=== PATIENT | male | born 1965 ===

== ENCOUNTER 2017-03-28 07:42 | Emergency (ER) | payer MEDICAID, OTHER ==
[2017-03-28] MEDS ORDERED: Sodium Chloride 0.9% 1,000 ML ONE (08:02)
[2017-03-28] MEDS ORDERED: Sodium Chloride 0.9% 1,000 ML IV ONE (08:07)
--- NOTE | 2017-03-28 08:16 | C.PDOC ---
History Of Present Illness 51 yr old male presents to the ER with complaints of left flank pain, radiating down to the left lower abdominal pain since 6am today. Patient states he has never had these symptoms before. Denies fever, chills, chest pain, SOB, nausea, vomiting, diarrhea, dysuria, weakness or numbness. Time Seen by Provider: 03/28/17 07:50 Chief Complaint (Nursing): Back Pain History Per: Patient History/Exam Limitations: no limitations Onset/Duration Of Symptoms: Sudden Onset (since 6am) Current Symptoms Are (Timing): Still Present Past Medical History Reviewed: Historical Data, Nursing Documentation, Vital Signs Vital Signs: Last Vital Signs Temp 97.6 F 03/28/17 09:22 Pulse 62 03/28/17 09:22 Resp 18 03/28/17 09:22 BP 133/87 03/28/17 09:22 Pulse Ox 100 03/28/17 09:24 - Medical History PMH: HTN Surgical History: Back Surgery Family History: States: No Known Family Hx - Social History Hx Alcohol Use: No Hx Substance Use: No - Immunization History Hx Tetanus Toxoid Vaccination: No Hx Influenza Vaccination: No Hx Pneumococcal Vaccination: No Review Of Systems Except As Marked, All Systems Reviewed And Found Negative. Constitutional: Negative for: Fever, Chills Cardiovascular: Negative for: Chest Pain Respiratory: Negative for: Shortness of Breath Gastrointestinal: Positive for: Abdominal Pain (Left lower). Negative for: Nausea, Vomiting Genitourinary: Negative for: Dysuria Musculoskeletal: Positive for: Back Pain (Left flank pain) Neurological: Negative for: Weakness, Numbness Physical Exam - Physical Exam Appears: Non-toxic, No Acute Distress Skin: Warm, Dry, No Rash Head: Atraumatic, Normacephalic Eye(s): bilateral: Normal Inspection Oral Mucosa: Moist Neck: Normal ROM, Supple Chest: Symmetrical, No Tenderness Cardiovascular: Rhythm Regular, No Murmur Respiratory: Normal Breath Sounds, No Rales, No Rhonchi, No Wheezing Gastrointestinal/Abdominal: Soft, Tenderness (LLQ tenderness), No Distention, No Guarding, No Rebound Back: CVA Tenderness (Left), No Vertebral Tenderness Extremity: Normal ROM, No Swelling Neurological/Psych: Oriented x3, Normal Speech, Normal Motor Gait: Steady ED Course And Treatment - Laboratory Results Result Diagrams: 03/28/17 08:15 03/28/17 08:15 O2 Sat by Pulse Oximetry: 100 (RA) Pulse Ox Interpretation: Normal - CT Scan/US CT - Abd & Pelvis Other Rad Studies (CT/US): Read By Radiologist, Radiology Report Reviewed CT/US Interpretation: PROCEDURE: CT Abdomen and Pelvis without intravenous contrast. HISTORY: left flank and LLQ abd pain,. COMPARISON: None. TECHNIQUE: Without contrast.. Contrast Dose: 0. Radiation dose: Total exam DLP = 290.36 mGy-cm. This CT exam was performed using one or more of the following dose reduction techniques: Automated exposure control, adjustment of the mA and/or kV according to patient size, and/or use of iterative reconstruction technique. FINDINGS: LOWER THORAX: Unremarkable. LIVER: Unremarkable. No gross lesion or ductal dilatation. GALLBLADDER AND BILE DUCTS : Unremarkable. PANCREAS: Unremarkable. No gross lesion or ductal dilatation. SPLEEN: Unremarkable. ADRENALS: Unremarkable. No mass. KIDNEYS AND URETERS: No renal mass, calculus or hydronephrosis. There is minimal left perinephric fluid likely reflecting forniceal rupture. Possibility of a recently passed urinary calculus should be considered. There is no ureteral calculus or hydroureter. VASCULATURE: Unremarkable. No aortic aneurysm. BOWEL : Unremarkable. No obstruction. No gross mural thickening. APPENDIX: Unremarkable. Normal appendix. PERITONEUM: Unremarkable. No free fluid. No free air. LYMPH NODES: Unremarkable. No enlarged lymph nodes. BLADDER: Unremarkable. REPRODUCTIVE: Normal prostate. BONES: Status post anterior fixation at L5-S1 with artificial disc spacer. OTHER FINDINGS: None. IMPRESSION: Trace left perinephric fluid which may be the result of recently passed urinary calculus. No hydronephrosis or hydroureter. No urinary calculus identified. The remainder of the examination is unremarkable. Medical Decision Making Medical Decision Making: PLAN: * CT - Abd & Pelvis * CBC * CMP * Urinalysis * Toradol IVP * Zofran IVP * Sodium Chloride IV CT results demonstrate the a stone was likely there and has come out. Results were discussed with the patient. On re-exam, the patient reports improvement of symptoms and is pain free. Lungs are CTA, heart is RRR, abdomen is soft, non- tender and patient is tolerating PO well. Ambulatory in the ED with steady gait. Follow up with the medical doctor within 1-2 days, Return if worsened. Disposition - Disposition Referrals: Brionna,[place] J, MD [Staff Provider] - Disposition: HOME/ ROUTINE Disposition Time: 09:00 Condition: GOOD Additional Instructions: Follow up with the medical doctor/Urologist within 1-2 days. Return if worsened. 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 - Scribe Statement The provider has reviewed the documentation as recorded by the Scribe Erin Torres All medical record entries made by the Silvana were at my direction and personally dictated by me. I have reviewed the chart and agree that the record accurately reflects my personal performance of the history, physical exam, medical decision making, and the department course for this patient. I have also personally directed, reviewed, and agree with the discharge instructions and disposition.
[2017-03-28 08:20] LABS: BASO # 0.1 K/uL (0.0-0.2); BASO % 1.5 % (0.0-2.0); EOS # 0.1 K/uL (0.0-0.7); EOS % 1.1 % (0.0-4.0); HEMATOCRIT 49.3 % (35.0-51.0); LYMPH # 3.1 K/uL (1.0-4.3); MEAN CELL VOLUME 94.3 fL (80.0-94.0); MEAN CORPUSCULAR HEMOGLOBIN 31.7 pg (27.0-31.0); MEAN CORPUSCULAR HGB CONC 33.6 g/dL (33.0-37.0); MEAN PLATELET VOLUME 10.6 fL (7.2-11.7); MONO # 0.8 K/uL (0.0-0.8); MONO % 9.9 % (0.0-10.0); NRBC % 0.1 % (0.0-2.0); RED CELL DISTRIBUTION WIDTH 13.6 % (11.5-14.5); WHITE BLOOD COUNT 8.3 K/uL (4.8-10.8)
[2017-03-28 08:28] LABS: CHLORIDE 104 mmol/L (98-107); SODIUM 141 mmol/L (132-148)
[2017-03-28 08:29] LABS: POTASSIUM 4.3 mmol/L (3.6-5.2)
[2017-03-28 08:30] LABS: GFR AFRICAN-AMERICAN > 60
[2017-03-28 08:31] LABS: ALB/GLOB RATIO 1.5 (1.0-2.1); ALKALINE PHOSPHATASE 102 U/L (38-126); ALT/SGPT 37 U/L (21-72); AST/SGOT 24 U/L (17-59); BILIRUBIN,TOTAL 0.8 mg/dL (0.2-1.3); BLOOD UREA NITROGEN 24 mg/dL (9-20); CALCIUM 9.1 mg/dl (8.6-10.4); CARBON DIOXIDE 25 mmol/L (22-30); GLUCOSE,RANDOM 104 mg/dL (75-110); RBC URINE 5 /hpf (0-3); TOTAL PROTEIN 7.2 g/dL (6.3-8.3); URINE BACTERIA RARE (<OCC); URINE BILIRUBIN NEGATIVE (NEGATIVE); URINE BLOOD 1+ (NEGATIVE); URINE COLOR Yellow (YELLOW); URINE GLUCOSE (UA) NORMAL (Normal); URINE KETONE NEGATIVE (NEGATIVE); URINE LEUKOCYTE ESTERASE NEG Leu/uL (Negative); URINE PROTEIN NEGATIVE (NEGATIVE); URINE UROBILINOGEN NORMAL mg/dL (0.2-1.0); WBC URINE 2 /hpf (0-5)
--- NOTE | 2017-03-28 09:01 | CT ---
PROCEDURE: CT Abdomen and Pelvis without intravenous contrast HISTORY: left flank and LLQ abd pain, COMPARISON: None. TECHNIQUE: Without contrast.. Contrast Dose: 0 Radiation dose: Total exam DLP = 290.36 mGy-cm. This CT exam was performed using one or more of the following dose reduction techniques: Automated exposure control, adjustment of the mA and/or kV according to patient size, and/or use of iterative reconstruction technique. FINDINGS: LOWER THORAX: Unremarkable. LIVER: Unremarkable. No gross lesion or ductal dilatation. GALLBLADDER AND BILE DUCTS: Unremarkable. PANCREAS: Unremarkable. No gross lesion or ductal dilatation. SPLEEN: Unremarkable. ADRENALS: Unremarkable. No mass. KIDNEYS AND URETERS: No renal mass, calculus or hydronephrosis. There is minimal left perinephric fluid likely reflecting forniceal rupture. Possibility of a recently passed urinary calculus should be considered. There is no ureteral calculus or hydroureter. VASCULATURE: Unremarkable. No aortic aneurysm. BOWEL: Unremarkable. No obstruction. No gross mural thickening. APPENDIX: Unremarkable. Normal appendix. PERITONEUM: Unremarkable. No free fluid. No free air. LYMPH NODES: Unremarkable. No enlarged lymph nodes. BLADDER: Unremarkable. REPRODUCTIVE: Normal prostate BONES: Status post anterior fixation at L5-S1 with artificial disc spacer. OTHER FINDINGS: None. IMPRESSION: Trace left perinephric fluid which may be the result of recently passed urinary calculus. No hydronephrosis or hydroureter. No urinary calculus identified. The remainder of the examination is unremarkable.
[2017-03-28 09:23] VITALS: BP 133/87; PULSE 62; RESP 18; TEMP 97.6
[2017-03-28 09:24] VITALS: O2SAT 100
== END 2017-03-28 09:35 | disposition home or self-care (01) ==
LOC: MERGE 07:42 → C.ER 07:42
DX: N23 Unspecified renal colic (principal)
CPT/HCPCS: 74176; 80053; 81001; 83690; 85025; 87086; 96361; 96374; 96375; 99285; J1885; J2405; J7040

== ENCOUNTER 2017-06-25 13:06 | Emergency (ER) | payer MEDICAID, OTHER ==
[2017-06-25 13:44] VITALS: RESP 18; TEMP 97.8
[2017-06-25 14:42] LABS: BASO # 0.1 K/uL (0.0-0.2); BASO % 1.1 % (0.0-2.0); EOS # 0.1 K/uL (0.0-0.7); EOS % 1.8 % (0.0-4.0); HEMATOCRIT 48.7 % (35.0-51.0); LYMPH # 2.8 K/uL (1.0-4.3); LYMPH % 39.4 % (20.0-40.0); MEAN CELL VOLUME 93.9 fL (80.0-94.0); MEAN CORPUSCULAR HEMOGLOBIN 31.9 pg (27.0-31.0); MEAN PLATELET VOLUME 9.7 fL (7.2-11.7); MONO # 0.7 K/uL (0.0-0.8); MONO % 9.6 % (0.0-10.0); RED CELL DISTRIBUTION WIDTH 13.5 % (11.5-14.5); WHITE BLOOD COUNT 7.1 K/uL (4.8-10.8)
[2017-06-25 14:54] LABS: RBC URINE < 1 /hpf (0-3); URINE BILIRUBIN NEGATIVE (NEGATIVE); URINE BLOOD NEGATIVE (NEGATIVE); URINE COLOR Yellow (YELLOW); URINE GLUCOSE (UA) NORMAL (Normal); URINE KETONE NEGATIVE (NEGATIVE); URINE LEUKOCYTE ESTERASE NEG Leu/uL (Negative); URINE PROTEIN NEGATIVE (NEGATIVE); URINE UROBILINOGEN NORMAL mg/dL (0.2-1.0); WBC URINE 1 /hpf (0-5)
--- NOTE | 2017-06-25 15:01 | C.PDOC ---
History Of Present Illness 51yo male with past medical history of hypertension, presents to ED for evaluation of frontal headache and bilateral shoulder pain for the past 3 weeks. Patient denies any heavy lifting, recent trauma or injuries. He also states the headache is not the worst of his life and denies any thunderclap association. He also denies any nausea, vomiting, visual changes. Patient has not taken any medication for his symptoms. No other complaints. Time Seen by Provider: 06/25/17 14:20 Chief Complaint (Nursing): Headache History Per: Patient History/Exam Limitations: no limitations Onset/Duration Of Symptoms: Days (3) Current Symptoms Are (Timing): Still Present Quality: "Pain" Preceeding Symptoms: None Associated Symptoms: denies: Photophobia, Blurred Vision, Nausea, Vomiting, Extremity Weakness Past Medical History Vital Signs: Last Vital Signs Temp 97.8 F 06/25/17 13:42 Pulse 77 06/25/17 13:42 Resp 18 06/25/17 13:42 BP 138/80 06/25/17 13:42 Pulse Ox 98 06/25/17 15:53 - Medical History PMH: HTN Surgical History: Back Surgery Family History: States: No Known Family Hx - Social History Hx Alcohol Use: No Hx Substance Use: No - Immunization History Hx Tetanus Toxoid Vaccination: No Hx Influenza Vaccination: No Hx Pneumococcal Vaccination: No Review Of Systems Constitutional: Negative for: Fever Eyes: Negative for: Vision Change Musculoskeletal: Positive for: Shoulder Pain (bilateral) Neurological: Positive for: Headache. Negative for: Other (thunderclap association) Physical Exam - Physical Exam Appears: Non-toxic Skin: Normal Color, Warm Head: Atraumatic, Normacephalic Eye(s): bilateral: Normal Inspection, PERRL, EOMI Neck: Supple Cardiovascular: Rhythm Regular Respiratory: Normal Breath Sounds Extremity: Normal ROM, Tenderness (tenderness to bilateral trapezius and ), No Deformity, No Swelling Neurological/Psych: Oriented x3, Normal Speech, Normal Cognition ED Course And Treatment - Laboratory Results Result Diagrams: 06/25/17 14:39 06/25/17 14:39 ECG: Interpreted By Me, Viewed By Me ECG Rhythm: Sinus Rhythm Interpretation Of ECG: Normal interval, normal axis, no ST/T wave changes Rate From EC O2 Sat by Pulse Oximetry: 98 (RA) Pulse Ox Interpretation: Normal Medical Decision Making Medical Decision Making: Impression: Headache, musculoskeletal pain Plan: -- CT Head w/o contrast -- EKG -- Labs Time: 1515 CT HEAD FINDINGS: HEMORRHAGE: No intracranial hemorrhage. BRAIN: No mass effect or edema. The anrdade-white matter differentiation appears intact. Please note that MRI with diffusion imaging is more sensitive in the detection of acute ischemic event. VENTRICLES: No hydrocephalus. CALVARIUM: Unremarkable. PARANASAL SINUSES: Unremarkable as visualized. No significant inflammatory changes. MASTOID AIR CELLS: Unremarkable as visualized. No inflammatory changes. OTHER FINDINGS: None. IMPRESSION: No acute intracranial pathology identified. Time: 1551 Labs including cardiac enzymes reviewed and all within normal limits. Patient stable for discharge home. Disposition Counseled Patient/Family Regarding: Studies Performed, Diagnosis, Need For Followup, Rx Given - Disposition Referrals: [facility] [Outside] Disposition: HOME/ ROUTINE Disposition Time: 15:54 Condition: IMPROVED Additional Instructions: follow up with your doctor or medical clinic in 2 days call to make an appointment take medications as needed for pain return to hospital if symptoms worsens or progress Prescriptions: Naproxen [Naprosyn] 500 mg PO BID PRN #16 tab PRN Reason: Pain, Moderate (4-7) Instructions: Acute Headache (ED), Musculoskeletal Pain (ED) Forms: [facility] [facility] (Yoruba), Gen Discharge Inst Peruvian, [employer] (Peruvian) Print Language: ALGERIAN - Clinical Impression Clinical Impression: Headache, Neck pain, musculoskeletal - Scribe Statement The provider has reviewed the documentation as recorded by the Silvana Wyatt Provider Attestation: All medical record entries made by the Silvana were at my direction and personally dictated by me. I have reviewed the chart and agree that the record accurately reflects my personal performance of the history, physical exam, medical decision making, and the department course for this patient. I have also personally directed, reviewed, and agree with the discharge instructions and disposition.
--- NOTE | 2017-06-25 15:11 | CT ---
PROCEDURE: CT HEAD WITHOUT CONTRAST. HISTORY: Headache COMPARISON: None available. TECHNIQUE: Axial computed tomography images were obtained through the head/brain without intravenous contrast. Radiation dose: Total exam DLP = 854.85 mGy-cm. This CT exam was performed using one or more of the following dose reduction techniques: Automated exposure control, adjustment of the mA and/or kV according to patient size, and/or use of iterative reconstruction technique. FINDINGS: HEMORRHAGE: No intracranial hemorrhage. BRAIN: No mass effect or edema. The andrade-white matter differentiation appears intact. Please note that MRI with diffusion imaging is more sensitive in the detection of acute ischemic event. VENTRICLES: No hydrocephalus. CALVARIUM: Unremarkable. PARANASAL SINUSES: Unremarkable as visualized. No significant inflammatory changes. MASTOID AIR CELLS: Unremarkable as visualized. No inflammatory changes. OTHER FINDINGS: None. IMPRESSION: No acute intracranial pathology identified.
[2017-06-25 15:13] LABS: ALB/GLOB RATIO 1.5 (1.0-2.1); BILIRUBIN,TOTAL 0.7 mg/dL (0.2-1.3); CALCIUM 8.4 mg/dl (8.6-10.4); GFR AFRICAN-AMERICAN > 60; GLUCOSE,RANDOM 102 mg/dL (75-110); TOTAL PROTEIN 6.6 g/dL (6.3-8.3)
[2017-06-25 15:20] LABS: ALKALINE PHOSPHATASE 93 U/L (38-126); ALT/SGPT 67 U/L (21-72); AST/SGOT 53 U/L (17-59); BLOOD UREA NITROGEN 17 mg/dL (9-20); CARBON DIOXIDE 29 mmol/L (22-30); CHLORIDE 105 mmol/L (98-107); POTASSIUM 4.1 mmol/L (3.6-5.2); SODIUM 140 mmol/L (132-148)
[2017-06-25 16:04] VITALS: BP 143/80; PULSE 60; O2SAT 99
--- NOTE | 2017-06-27 23:03 | CARD ---
APPROVED REPORT EKG Measurement Heart [id number] <Conclusion> Normal sinus rhythm Normal ECG
== END 2017-06-25 16:04 | disposition home or self-care (01) ==
LOC: C.ER 13:06
DX: R51 Headache (principal); M54.2 Cervicalgia
CPT/HCPCS: 70450; 80053; 81001; 82550; 85025; 93005; 96374; 99285; J1885

== ENCOUNTER 2017-07-05 21:05 | Emergency (ER) | payer OTHER ==
--- NOTE | 2017-07-05 22:00 | C.PDOC ---
History Of Present Illness Pt presents with sudden onset of left flank pain, radiating towards the groin. No f/c/n/v. Sharp stabbing pain. No dysuria Time Seen by Provider: 07/05/17 22:00 Chief Complaint (Nursing): Abdominal Pain History Per: Patient History/Exam Limitations: no limitations Onset/Duration Of Symptoms: Hrs Current Symptoms Are (Timing): Worse Severity: Moderate Pain Scale Rating Of: 5 Location Of Pain/Discomfort: LLQ Radiation Of Pain To:: Back Quality Of Discomfort: Sharp, Stabbing Associated Symptoms: denies: Fever, Chills, Nausea, Urinary Symptoms Exacerbating Factors: None Alleviating Factors: None Last Bowel Movement: Today Recent travel outside of the [place]: No Additional History Per: Patient Past Medical History Reviewed: Historical Data, Nursing Documentation, Vital Signs Vital Signs: Last Vital Signs Temp 97.5 F L 07/05/17 21:52 Pulse 64 07/05/17 22:22 Resp 20 07/05/17 22:22 BP 135/80 07/05/17 22:22 Pulse Ox 97 07/05/17 23:18 - Medical History PMH: Back Problems, HTN Surgical History: Back Surgery Family History: States: No Known Family Hx - Social History Hx Alcohol Use: No Hx Substance Use: No - Immunization History Hx Tetanus Toxoid Vaccination: No Hx Influenza Vaccination: No Hx Pneumococcal Vaccination: No Review Of Systems Constitutional: Negative for: Fever, Chills Eyes: Negative for: Vision Change ENT: Negative for: Throat Pain Cardiovascular: Negative for: Chest Pain Respiratory: Negative for: Shortness of Breath Gastrointestinal: Positive for: Abdominal Pain. Negative for: Nausea, Vomiting Genitourinary: Negative for: Dysuria Musculoskeletal: Positive for: Back Pain Skin: Negative for: Rash Neurological: Negative for: Weakness Psych: Negative for: Anxiety Physical Exam - Physical Exam Appears: Non-toxic, In Acute Distress Skin: Warm, Dry Head: Normacephalic Eye(s): bilateral: Normal Inspection Neck: Supple Chest: Symmetrical Cardiovascular: Rhythm Regular Respiratory: No Rales, No Rhonchi, No Wheezing Gastrointestinal/Abdominal: Soft, Tenderness (left flank), No Distention, No Guarding, No Rebound Back: CVA Tenderness (left flank) Extremity: Normal ROM Extremity: Bilateral: Atraumatic, Normal Color And Temperature Pulses: Left Dorsalis Pedis: Normal, Right Dorsalis Pedis: Normal Neurological/Psych: Oriented x3 Gait: Steady ED Course And Treatment - Laboratory Results Result Diagrams: 07/05/17 22:20 07/05/17 22:20 O2 Sat by Pulse Oximetry: 97 Pulse Ox Interpretation: Normal - Radiology CXR: Interpreted by Me, Viewed By Me CXR Interpretation: No: Infiltrates, Fracture, Pnemothorax Reevaluation Time: 01:57 Reassessment Condition: Improved Disposition Counseled Patient/Family Regarding: Studies Performed, Diagnosis, Need For Followup, Rx Given - Disposition Referrals: Serafin Serna MD [Staff Provider] - Disposition: HOME/ ROUTINE Disposition Time: 22:00 Condition: FAIR Additional Instructions: Please return if symptoms recur Prescriptions: Tamsulosin [Flomax] 0.4 mg PO DAILY #15 cap traMADol [Ultram] 50 mg PO QID PRN #20 tab PRN Reason: Pain, Severe (8-10) Instructions: Renal Colic (ED) Forms: [employer] (Prydeinig) Print Language: KAZAKH - Clinical Impression Clinical Impression: Renal colic, Abdominal discomfort
[2017-07-05] MEDS ORDERED: Lactated Ringer's 1,000 ML IV ONE (22:02)
[2017-07-05] MEDS ORDERED: Lactated Ringer's 1,000 ML ONE (22:08)
[2017-07-05 22:23] LABS: BASO # 0.1 K/uL (0.0-0.2); BASO % 0.8 % (0.0-2.0); EOS # 0.2 K/uL (0.0-0.7); EOS % 1.2 % (0.0-4.0); HEMATOCRIT 46.8 % (35.0-51.0); LYMPH # 2.6 K/uL (1.0-4.3); LYMPH % 18.8 % (20.0-40.0); MEAN CELL VOLUME 93.6 fL (80.0-94.0); MEAN CORPUSCULAR HEMOGLOBIN 32.5 pg (27.0-31.0); MEAN CORPUSCULAR HGB CONC 34.7 g/dL (33.0-37.0); MEAN PLATELET VOLUME 9.8 fL (7.2-11.7); MONO # 1.4 K/uL (0.0-0.8); RED CELL DISTRIBUTION WIDTH 13.5 % (11.5-14.5); WHITE BLOOD COUNT 13.9 K/uL (4.8-10.8)
[2017-07-05 22:25] VITALS: PULSE 64
[2017-07-05 22:37] LABS: ALB/GLOB RATIO 1.6 (1.0-2.1); ALKALINE PHOSPHATASE 85 U/L (38-126); ALT/SGPT 47 U/L (21-72); AST/SGOT 40 U/L (17-59); BILIRUBIN,TOTAL 1.4 mg/dL (0.2-1.3); BLOOD UREA NITROGEN 21 mg/dL (9-20); CALCIUM 8.1 mg/dl (8.6-10.4); CARBON DIOXIDE 26 mmol/L (22-30); CHLORIDE 104 mmol/L (98-107); GFR AFRICAN-AMERICAN > 60; GLUCOSE,RANDOM 89 mg/dL (75-110); POTASSIUM 4.8 mmol/L (3.6-5.2); SODIUM 137 mmol/L (132-148); TOTAL PROTEIN 6.8 g/dL (6.3-8.3)
[2017-07-05 22:56] LABS: RBC URINE 4 /hpf (0-3); URINE BILIRUBIN NEGATIVE (NEGATIVE); URINE BLOOD NEGATIVE (NEGATIVE); URINE COLOR Yellow (YELLOW); URINE GLUCOSE (UA) NORMAL (Normal); URINE KETONE NEGATIVE (NEGATIVE); URINE LEUKOCYTE ESTERASE NEG Leu/uL (Negative); URINE PROTEIN NEGATIVE (NEGATIVE); URINE UROBILINOGEN NORMAL mg/dL (0.2-1.0); WBC URINE < 1 /hpf (0-5)
--- NOTE | 2017-07-06 01:41 | CT ---
EXAM: CT Abdomen and Pelvis Without Intravenous Contrast EXAM DATE/TIME: 07/05/2017 10:59 PM CLINICAL HISTORY: 51 years old, male; Pain; Abdominal pain; Prior surgery; Surgery type: Lower back surgery; Patient HX: 03-28-17; Additional info: Left flank pain TECHNIQUE: Axial computed tomography images of the abdomen and pelvis without intravenous contrast. All CT scans at this facility use one or more dose reduction techniques, viz.: automated exposure control; ma/kV adjustment per patient size (including targeted exams where dose is matched to indication; i.e. head); or iterative reconstruction technique. Coronal and sagittal reformatted images were created and reviewed. COMPARISON: CT - ABD PELVIS W/O PO OR IV CONT 2017-03-28 08:31 FINDINGS: The liver, spleen, gallbladder and pancreas appear grossly normal on this non-contrast study. There is mild left hydronephrosis and very mild left hydroureter.There is moderate left perinephric stranding/fluid increased since prior. The left ureter enters the urinary bladder on coronal image 67 , axial image 166. There is a questionable tiny 1 mm calcification at the UVJ however the tiny size would not be expected to obstruct the larger caliber ureteral lumen thus would not be expected to produce the degree of dilation or stranding / fluid present. Colon diverticulosis. A normal appendix is identified series 3 images 121 through 139. Anterior fixation with artificial disc spacer at L5-S1. IMPRESSION: Left perinephric stranding and perinephric fluid that has increased significantly since the prior study. Mild left hydronephrosis and hydroureter. The perinephric stranding/fluid is significantly out of proportion to the dilation. This disproportionality usually suggests forniceal rupture (as discussed in prior report) however the lack of obstructing calculi raises the possibility of nonopaque source of obstruction. Recently passed calculi would be a possibility however if the patient's symptoms do not resolve, further workup is warranted to exclude nonopaque source of obstruction.
[2017-07-06 02:16] VITALS: BP 150/90; RESP 18; TEMP 97.9; O2SAT 98
--- NOTE | 2017-07-06 08:57 | RAD ---
PROCEDURE: CHEST RADIOGRAPH, 1 VIEW HISTORY: Sepsis COMPARISON: None available. FINDINGS: LUNGS: The lungs are clear. PLEURA: No pneumothorax or pleural fluid seen. CARDIOVASCULAR: Normal. OSSEOUS STRUCTURES: No significant abnormalities. VISUALIZED UPPER ABDOMEN: Normal. OTHER FINDINGS: None. IMPRESSION: No active pulmonary disease.
== END 2017-07-06 02:16 | disposition home or self-care (01) ==
LOC: C.ER 21:05
DX: N23 Unspecified renal colic (principal); R10.32 Left lower quadrant pain
CPT/HCPCS: 71010; 74176; 80053; 81001; 83690; 85025; 96374; 96375; 99285; J1885; J2270; J2405; J7120

== ENCOUNTER 2018-02-18 15:51 | Emergency (ER) | payer SELFPAY ==
[2018-02-18 16:08] VITALS: PULSE 88; RESP 18; BMI 28.3
[2018-02-18 16:49] LABS: BASO # 0.1 K/uL (0.0-0.2); EOS # 0.1 K/uL (0.0-0.7); EOS % 1.6 % (0.0-4.0); HEMOGLOBIN 16.8 g/dL (12.0-18.0); LYMPH # 3.2 K/uL (1.0-4.3); LYMPH % 42.6 % (20.0-40.0); MEAN CELL VOLUME 93.6 fL (80.0-94.0); MEAN CORPUSCULAR HEMOGLOBIN 32.3 pg (27.0-31.0); MEAN CORPUSCULAR HGB CONC 34.5 g/dL (33.0-37.0); MEAN PLATELET VOLUME 9.7 fL (7.2-11.7); MONO # 0.7 K/uL (0.0-0.8); MONO % 9.9 % (0.0-10.0); NEUT # 3.3 K/uL (1.8-7.0); NEUT % 44.9 % (50.0-75.0); NRBC % 0.1 % (0.0-2.0); RBC 5.21 Mil/uL (4.40-5.90); RED CELL DISTRIBUTION WIDTH 13.6 % (11.5-14.5); WHITE BLOOD COUNT 7.4 K/uL (4.8-10.8)
--- NOTE | 2018-02-18 17:13 | CT ---
Date of service: 02/18/2018 PROCEDURE: CT Abdomen and Pelvis without intravenous contrast HISTORY: renal colic COMPARISON: 07/06/17. TECHNIQUE: Technique. Contrast dose: Radiation dose: Total exam DLP = mGy-cm. This CT exam was performed using one or more of the following dose reduction techniques: Automated exposure control, adjustment of the mA and/or kV according to patient size, and/or use of iterative reconstruction technique. FINDINGS: LOWER THORAX: Unremarkable. LIVER: Unremarkable. No gross lesion or ductal dilatation. GALLBLADDER AND BILE DUCTS: Unremarkable. PANCREAS: Unremarkable. No gross lesion or ductal dilatation. SPLEEN: Unremarkable. ADRENALS: Unremarkable. No mass. KIDNEYS AND URETERS: Redemonstrated left hydronephrosis and hydroureter without obstructive calculus. Perinephric stranding as noted on prior exam. VASCULATURE: Unremarkable. No aortic aneurysm. BOWEL: Unremarkable. No obstruction. No gross mural thickening. APPENDIX: Unremarkable. Normal appendix. PERITONEUM: Unremarkable. No free fluid. No free air. LYMPH NODES: Unremarkable. No enlarged lymph nodes. BLADDER: Unremarkable. REPRODUCTIVE: Unremarkable. BONES: No acute fracture. OTHER FINDINGS: None. IMPRESSION: Redemonstrated left hydronephrosis and hydroureter without obstructive calculus. Perinephric stranding as noted on prior exam. Cannot exclude a mass. Recommend follow-up with contrast.
[2018-02-18 17:15] LABS: BLOOD UREA NITROGEN 18 mg/dL (9-20); GFR AFRICAN-AMERICAN > 60; GFR NON-AFRICAN AMERICAN > 60
[2018-02-18 17:16] LABS: ALB/GLOB RATIO 1.5 (1.0-2.1); ALBUMIN 4.4 g/dL (3.5-5.0); ALT/SGPT 47 U/L (21-72); AST/SGOT 39 U/L (17-59); CALCIUM 9.8 mg/dl (8.6-10.4); LIPASE 114 U/L (23-300)
[2018-02-18 17:22] LABS: URINE BACTERIA RARE (<OCC); URINE BILIRUBIN NEGATIVE (NEGATIVE); URINE BLOOD 3+ (NEGATIVE); URINE CLARITY Hazy (Clear); URINE COLOR Yellow (YELLOW); URINE GLUCOSE (UA) NORMAL (Normal); URINE LEUKOCYTE ESTERASE NEG Leu/uL (Negative); URINE PROTEIN NEGATIVE (NEGATIVE); URINE UROBILINOGEN NORMAL mg/dL (0.2-1.0)
--- NOTE | 2018-02-18 17:25 | C.PDOC ---
History Of Present Illness 52 y/o male presents to the ER complaining of left flank pain that radiates to the left groin with sudden onset 2 hours ago. The patient admits to having similar symptoms before when diagnosed with renal calculi. 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 The patient denies any fever, nausea, vomiting , dysuria, or incontinence. Time Seen by Provider: 02/18/18 16:14 Chief Complaint (Nursing): Abdominal Pain History Per: Patient History/Exam Limitations: no limitations Onset/Duration Of Symptoms: Hrs Current Symptoms Are (Timing): Still Present Location Of Pain/Discomfort: Other (Flank pain radiating to groin) Radiation Of Pain To:: Other (groin) Quality Of Discomfort: Sharp Associated Symptoms: denies: Fever Past Medical History Reviewed: Historical Data, Nursing Documentation, Vital Signs Vital Signs: Last Vital Signs Temp 97 F L 02/18/18 17:40 Pulse 88 02/18/18 16:08 Resp 18 02/18/18 17:40 BP 166/82 H 02/18/18 17:40 Pulse Ox 98 02/18/18 18:14 - Medical History PMH: Back Problems, HTN, Kidney Stones, Chronic Kidney Disease Surgical History: Back Surgery Family History: States: Unknown Family Hx - Social History Hx Alcohol Use: No Hx Substance Use: No - Immunization History Hx Tetanus Toxoid Vaccination: No Hx Influenza Vaccination: No Hx Pneumococcal Vaccination: No Review Of Systems Except As Marked, All Systems Reviewed And Found Negative. Constitutional: Negative for: Fever, Chills Gastrointestinal: Negative for: Nausea, Vomiting Genitourinary: Negative for: Dysuria, Incontinence Musculoskeletal: Positive for: Back Pain (left flank) Neurological: Negative for: Weakness, Numbness Physical Exam - Physical Exam Appears: In Acute Distress (in severe painful distress) Skin: Normal Color, Warm, Dry Head: Atraumatic, Normacephalic Eye(s): bilateral: PERRL, EOMI Ear(s): Bilateral: Normal Oral Mucosa: Moist Neck: Normal ROM Chest: Symmetrical Cardiovascular: Rhythm Regular, No Murmur Respiratory: Normal Breath Sounds, No Rales, No Rhonchi, No Wheezing Gastrointestinal/Abdominal: Bowel Sounds, Soft, No Tenderness Back: CVA Tenderness (Pain with percussion to left costoverterbral angle) Extremity: Bilateral: Atraumatic, Normal Color And Temperature, Normal ROM Pulses: Left Radial: Normal, Right Radial: Normal Neurological/Psych: Oriented x3, Normal Speech Gait: Steady ED Course And Treatment - Laboratory Results Result Diagrams: 02/18/18 16:45 02/18/18 16:45 O2 Sat by Pulse Oximetry: 98 (RA) Pulse Ox Interpretation: Normal - CT Scan/US CT abdomem/pelvis Other Rad Studies (CT/US): Read By Radiologist, Radiology Report Reviewed CT/US Interpretation: Redemonstrated left hydronephrosis and hydroureter without obstructive calculus. Perinephric stranding as noted on prior exam. Cannot exclude a mass. Recommend follow-up with contrast. Medical Decision Making Medical Decision Making: Impression: 52 y/o male with flank pain that radiates to the groin Plan: --CT abd/pelvis --CMP --Lipase --CBC --UA Progress: Informed patient of CT results, copy of report provided. Final Impression: probably passed L ureteral stone h/o same no local Urology f/u prior refer to Urology Signal Maintainer- Dr. Staton. Disposition Doctor Will See Patient In The: Office Counseled Patient/Family Regarding: Studies Performed, Diagnosis - Disposition Referrals: Nazia Burnette MD [Medical Doctor] - [place] Staton MD [Staff Provider] - Disposition: HOME/ ROUTINE Disposition Time: 17:25 Condition: GOOD Additional Instructions: abbie Motrin 600 mg cada 6 horas claudio necessario o' abbie Neproxyn 500 mg cada 12 horas claudio necessario [facility]igue en [facility] Sigue con Dr. Staton- Urologo- para consulto. Instructions: Renal Colic (DC) Forms: [employer] (Bulgarian) Print Language: [place] - Clinical Impression Clinical Impression: Renal colic - Scribe Statement The provider has reviewed the documentation as recorded by the Scribe (Bhavya Pickens) Provider Attestation: All medical record entries made by the Scribe were at my direction and personally dictated by me. I have reviewed the chart and agree that the record accurately reflects my personal performance of the history, physical exam, medical decision making, and the department course for this patient. I have also personally directed, reviewed, and agree with the discharge instructions and disposition.
[2018-02-18 17:55] VITALS: BP 166/82; TEMP 97
[2018-02-18 17:57] VITALS: O2SAT 98
== END 2018-02-18 17:55 | disposition home or self-care (01) ==
LOC: C.ER 15:51
DX: N23 Unspecified renal colic (principal)

== ENCOUNTER 2018-08-25 23:30 | Emergency (ER) | payer SELFPAY ==
[2018-08-25 23:31] VITALS: BMI 28.3
[2018-08-25 23:42] VITALS: RESP 16; TEMP 98.8; O2SAT 96
--- NOTE | 2018-08-26 | C.PDOC ---
History Of Present Illness Presents with left flank pain, ehich started a few hours ago. has history of kidney stones. No f/c/n/v. Tolerating po Time Seen by Provider: 08/26/18 00:00 Chief Complaint (Nursing): Abdominal Pain History Per: Patient History/Exam Limitations: no limitations Onset/Duration Of Symptoms: Days Current Symptoms Are (Timing): Still Present Context: Other Severity: Moderate Pain Scale Rating Of: 4 Location Of Pain/Discomfort: LLQ Radiation Of Pain To:: Back Quality Of Discomfort: Sharp Associated Symptoms: denies: Fever, Chills Exacerbating Factors: denies: Cough Alleviating Factors: None Last Bowel Movement: Today Recent travel outside of the [place]: No Additional History Per: Patient Past Medical History Reviewed: Historical Data, Nursing Documentation, Vital Signs Vital Signs: Last Vital Signs Temp 98.8 F 08/25/18 23:39 Pulse 95 H 08/25/18 23:39 Resp 16 08/25/18 23:39 BP 170/117 H 08/25/18 23:39 Pulse Ox 96 08/25/18 23:39 - Medical History PMH: Back Problems, HTN, Kidney Stones, Chronic Kidney Disease Surgical History: Back Surgery Family History: States: No Known Family Hx - Social History Hx Alcohol Use: No Hx Substance Use: No - Immunization History Hx Tetanus Toxoid Vaccination: No Hx Influenza Vaccination: No Hx Pneumococcal Vaccination: No Review Of Systems Constitutional: Negative for: Fever, Chills Respiratory: Negative for: Shortness of Breath Gastrointestinal: Positive for: Abdominal Pain. Negative for: Nausea Genitourinary: Negative for: Dysuria Musculoskeletal: Positive for: Back Pain Skin: Negative for: Rash Neurological: Negative for: Weakness Psych: Negative for: Anxiety Physical Exam - Physical Exam Appears: Non-toxic Skin: Warm, Dry Oral Mucosa: Moist Neck: Supple Chest: Symmetrical Cardiovascular: Rhythm Regular Respiratory: No Rales, No Rhonchi, No Wheezing Gastrointestinal/Abdominal: Soft, Tenderness (left flank) Back: No CVA Tenderness (left) Male Genital: No Inguinal Tenderness Extremity: Normal ROM Neurological/Psych: Oriented x3 Gait: Steady ED Course And Treatment - Laboratory Results Result Diagrams: 08/26/18 00:04 08/26/18 00:04 O2 Sat by Pulse Oximetry: 96 Pulse Ox Interpretation: Normal Reevaluation Time: 01:31 Reassessment Condition: Improved Medical Decision Making Medical Decision Making: Upon provider reevaluation patient is feeling better, is medically stable, and requires no further treatment in the ED at this time. Patient will be discharged home with Rx for tramadol, zofran, flomax. Counseling was provided and all questions were answered regarding diagnosis and need for follow up with dr guillaume There is agreement to discharge plan. Return if symptoms persist or worsen. Disposition Counseled Patient/Family Regarding: Studies Performed, Diagnosis, Need For Followup, Rx Given - Disposition Referrals: Antonio Guillaume Jr., MD [Staff Provider] - Disposition: HOME/ ROUTINE Disposition Time: 00:00 Condition: FAIR Additional Instructions: Please return if symptoms recur Prescriptions: Ondansetron ODT [Zofran ODT] 1 odt PO BID PRN #6 odt PRN Reason: Nausea/Vomiting Tamsulosin [Flomax] 0.4 mg PO DAILY #14 cap traMADol [Ultram] 50 mg PO TID PRN #15 tab PRN Reason: Pain, Severe (8-10) Instructions: Renal Colic (DC), Kidney Stone Diet, Kidney Stones (DC), Hydronephrosis, Adult (DC) Forms: [employer] (Moroccan) Print Language: [place] - Clinical Impression Clinical Impression: Renal colic, Kidney stone on left side, Hydronephrosis
[2018-08-26] MEDS ORDERED: Sodium Chloride 0.9% 1,000 ML IV ONE (00:01)
[2018-08-26] MEDS ORDERED: Sodium Chloride 0.9% 1,000 ML ONE ×2 (00:07→01:16)
[2018-08-26 00:10] LABS: BASO # 0.1 K/uL (0.0-0.2); BASO % 1.1 % (0.0-2.0); EOS # 0.1 K/uL (0.0-0.7); HEMOGLOBIN 17.3 g/dL (12.0-18.0); LYMPH # 3.1 K/uL (1.0-4.3); MEAN CELL VOLUME 95.3 fL (80.0-94.0); MEAN CORPUSCULAR HGB CONC 34.7 g/dL (33.0-37.0); MONO # 0.9 K/uL (0.0-0.8); NEUT # 5.5 K/uL (1.8-7.0); NEUT % 56.9 % (50.0-75.0); NRBC % 0.1 % (0.0-2.0); RBC 5.25 Mil/uL (4.40-5.90); RED CELL DISTRIBUTION WIDTH 13.7 % (11.5-14.5); WHITE BLOOD COUNT 9.7 K/uL (4.8-10.8)
[2018-08-26 00:16] LABS: URINE AMORPHOUS SEDIMENT RARE /ul (<OCC); URINE BACTERIA OCC (<OCC); URINE BILIRUBIN NEGATIVE (NEGATIVE); URINE BLOOD 1+ (NEGATIVE); URINE CLARITY Hazy (Clear); URINE COLOR Yellow (YELLOW); URINE GLUCOSE (UA) NORMAL (Normal); URINE LEUKOCYTE ESTERASE NEG Leu/uL (Negative); URINE PROTEIN NEGATIVE (NEGATIVE); URINE UROBILINOGEN NORMAL mg/dL (0.2-1.0)
[2018-08-26 00:27] LABS: ALB/GLOB RATIO 1.7 (1.0-2.1); ALBUMIN 4.8 g/dL (3.5-5.0); ALT/SGPT 31 U/L (21-72); AST/SGOT 37 U/L (17-59); BLOOD UREA NITROGEN 20 mg/dL (9-20); CALCIUM 9.3 mg/dl (8.6-10.4); GFR NON-AFRICAN AMERICAN > 60; LIPASE 116 U/L (23-300)
[2018-08-26] MEDS ORDERED: Lidocaine 116 MG in Sodium Chloride 0.9% 100 ML IV STA (01:02)
[2018-08-26 01:46] VITALS: BP 137/83; PULSE 84
--- NOTE | 2018-08-26 09:39 | CT ---
CT abdomen and pelvis HISTORY: Flank pain. COMPARISON: 02/18/2018 TECHNIQUE: Multiple contiguous axial images were performed through the abdomen and pelvis without the use of intravenous contrast. Subsequently, sagittal and coronal reformatted images were obtained. This CT exam was performed using one or more of the following dose reduction techniques: Automated exposure control, adjustment of the mA and/or kV according to patient size, and/or use of iterative reconstruction technique. Findings: 7 millimeter focal area of nodular consolidation within the lingula. Mild bibasilar atelectasis. No pleural or pericardial effusion. Heart is mildly enlarged. Fatty infiltration of liver. Contracted gallbladder. Spleen is preserved. Adrenal glands are preserved. Pancreas is preserved. Upper abdominal bowel is preserved. Right kidney: No gross calculi or hydronephrosis. Left Kidney: Moderate left renal hydroureteronephrosis with associated prominent left perinephric fat stranding. Suggestion of a punctate 1-2 millimeter obstructive calculus at the left ureterovesicular junction as seen on series 3, image 167. Urinary bladder is preserved. Heterogeneous prostate. Under distended and or mildly thickened descending and sigmoid colon. Fecal retention in right hemicolon. Appendix is within normal limits. Small fat containing bilateral inguinal hernias. Atherosclerotic calcification plaque the aorta. Few shotty mesenteric lymph nodes. Degenerative and postsurgical changes in the spine. Impression: 1. Moderate left renal hydroureteronephrosis with associated prominent left perinephric fat stranding. Suggestion of a punctate 1-2 millimeter obstructive calculus at the left ureterovesicular junction as seen on series 3, image 167. 2. Under distended and or mildly thickened descending and sigmoid colon. Clinical correlation. Additional findings as above. A preliminary report was generated at 1:28 a.m. on 08/26/[address] Gail Gaytan from [id number]
== END 2018-08-26 01:48 | disposition home or self-care (01) ==
LOC: C.ER 23:30
DX: N13.2 Hydronephrosis with renal and ureteral calculous obstruction (principal); I12.9 Hypertensive chronic kidney disease with stage 1 through stage 4 chronic kidney disease, or unspecified chronic kidney disease; N18.9 Chronic kidney disease, unspecified
CPT/HCPCS: 74176; 80053; 81001; 83690; 85025; 96361; 96374; 99285; J1885; J7030